=== PATIENT | female | born 1970 | race Caucasian/White ===

== ENCOUNTER 2020-02-03 04:30 | Emergency (ER) | payer MEDICAID ==
[~2020-02-03] VITALS: Ht 152.4 cm; Wt 81.6 kg
[2020-02-03 04:36] VITALS: BP 132/88; Ht 152.4 cm; Wt 81.6 kg
[2020-02-03] MEDS ORDERED: PERMETHRIN60 GM TOPICAL (04:50)
[2020-02-03] MEDS ORDERED: IVERMECTIN3 MG PO (04:50)
== END 2020-02-03 05:00 | disposition home or self-care (01) ==
LOC: D.ER 04:30
DX: B86 Scabies (principal)